=== PATIENT | male | born 1995 | race Caucasian/White ===

== ENCOUNTER 2017-09-25 22:05 | Inpatient (IN) | payer OTHER ==
[2017-09-25] MEDS ORDERED: ACETAMINOPHEN 325 MG TAB PO (22:30)
[2017-09-25] MEDS ORDERED: NACL 0.9% 3 ML SYG IV (22:30)
[2017-09-25] MEDS ORDERED: DOCUSATE SODIUM 100 MG CAP PO (22:30)
[2017-09-25] MEDS ORDERED: ONDANSETRON 4 MG INJ IV (22:30)
[2017-09-25] MEDS ORDERED: BISACODYL (EC) 5 MG TAB PO (22:30)
[2017-09-25] MEDS: SOD CHLORIDE 0.9% 1,000 ML IV (23:23)
[2017-09-25 23:30] LABS: ADD MAN DIFF? NO
[2017-09-25 23:31] LABS: WHITE BLOOD COUNT 10.7 10^3/ul (4.8-10.8)
[2017-09-25 23:31] LABS: BASOPHIL # 0.1 10^3/ul (0.0-0.1); BASOPHILS % 0.5 % (0.0-2.0); EOSINOPHILS % 0.2 % (0.0-7.0); HEMOGLOBIN 14.3 g/dl (14.0-18.0); LYMPHOCYTES # 1.3 10^3/ul (0.8-2.9); LYMPHOCYTES % 12.5 % (18.0-55.0); MEAN CORPUSCULAR HEMOGLOBIN 31.6 pg (29.0-33.0); MEAN CORPUSCULAR VOLUME 92.9 fl (72.0-104.0); MEAN PLATELET VOLUME 10.6 fl (7.4-10.4); MONOCYTE # 1.2 10^3/ul (0.3-0.9); MONOCYTES % 10.9 % (0.0-13.0); NEUTROPHIL # 8.1 10^3/ul (1.6-7.5); NEUTROPHILS % 75.6 % (30.0-74.0); PLATELET COUNT 205 10^3/UL (140-415); RED BLOOD COUNT 4.52 10^6/ul (4.70-6.10); RED CELL DISTRIBUTION WIDTH 12.6 % (11.5-14.5)
[2017-09-25 23:51] LABS: INR 1.13; PROTIME 14.7 Sec (11.9-14.9); PT RATIO 1.1
[2017-09-25 23:52] LABS: PARTIAL THROMBOPLASTIN TIME 36.9 Sec (25.0-35.0)
[2017-09-25 23:53] LABS: ALANINE AMINOTRANSFERASE 22 IU/L (13-69); ALBUMIN/GLOBULIN RATIO 1.33; ALKALINE PHOSPHATASE 88 IU/L (42-121); ANION GAP 12 (8-16); ASPARTATE AMINO TRANSFERASE 15 IU/L (15-46); BLOOD UREA NITROGEN 8 mg/dl (7-20); CALCIUM 9.1 mg/dl (8.4-10.2); CARBON DIOXIDE 28 mmol/L (21-31); CHLORIDE 106 mmol/L (97-110); CREATININE 0.93 mg/dl (0.61-1.24); GLUCOSE 100 mg/dl (70-220); POTASSIUM 4.1 mmol/L (3.5-5.1); SODIUM 142 mmol/L (135-144)
[2017-09-26 05:38] LABS: ADD MAN DIFF? NO
[2017-09-26 05:51] LABS: WHITE BLOOD COUNT 8.9 10^3/ul (4.8-10.8)
[2017-09-26 05:51] LABS: BASOPHIL # 0.1 10^3/ul (0.0-0.1); BASOPHILS % 0.8 % (0.0-2.0); EOSINOPHILS # 0.1 10^3/ul (0.0-0.5); HEMATOCRIT 39.3 % (42.0-52.0); HEMOGLOBIN 13.2 g/dl (14.0-18.0); LYMPHOCYTES # 1.6 10^3/ul (0.8-2.9); LYMPHOCYTES % 17.6 % (18.0-55.0); MEAN CORPUSCULAR HEMOGLOBIN 31.4 pg (29.0-33.0); MEAN CORPUSCULAR HGB CONC 33.6 g/dl (32.0-37.0); MEAN CORPUSCULAR VOLUME 93.3 fl (72.0-104.0); MEAN PLATELET VOLUME 11.2 fl (7.4-10.4); MONOCYTE # 1.1 10^3/ul (0.3-0.9); MONOCYTES % 12.3 % (0.0-13.0); NEUTROPHIL # 6.1 10^3/ul (1.6-7.5); PLATELET COUNT 193 10^3/UL (140-415); RED BLOOD COUNT 4.21 10^6/ul (4.70-6.10); RED CELL DISTRIBUTION WIDTH 12.8 % (11.5-14.5)
[2017-09-26 06:10] LABS: HEMOGLOBIN A1C 5.5 % (0-5.9)
[2017-09-26 06:12] LABS: ALANINE AMINOTRANSFERASE 20 IU/L (13-69); ALBUMIN 3.6 g/dl (3.3-4.9); ALBUMIN/GLOBULIN RATIO 1.28; ALKALINE PHOSPHATASE 76 IU/L (42-121); ANION GAP 11 (8-16); ASPARTATE AMINO TRANSFERASE 14 IU/L (15-46); BILIRUBIN,INDIRECT 0.9 mg/dl (0-1.1); BILIRUBIN,TOTAL 0.9 mg/dl (0.2-1.3); BLOOD UREA NITROGEN 9 mg/dl (7-20); CALCIUM 8.9 mg/dl (8.4-10.2); CARBON DIOXIDE 27 mmol/L (21-31); CHLORIDE 107 mmol/L (97-110); CREATININE 1.11 mg/dl (0.61-1.24); GLUCOSE 88 mg/dl (70-220); SODIUM 141 mmol/L (135-144); TOTAL PROTEIN 6.4 g/dl (6.1-8.1)
[2017-09-26] MEDS ORDERED: LIDOCAINE 1%/EPI 30 ML INJ (07:00)
[2017-09-26] MEDS ORDERED: BUPIVACAINE 0.25% (MPF) 30 ML INJ (07:00)
[2017-09-26] MEDS ORDERED: PROPOFOL 20 ML (07:32)
[2017-09-26] MEDS ORDERED: CEFAZOLIN 1 GM INJ (07:32)
[2017-09-26] MEDS ORDERED: ROCURONIUM 50 MG INJ ×2 (07:32→07:33)
[2017-09-26] MEDS ORDERED: ROPIVACAINE 0.5 % 30 ML VIAL (07:33)
[2017-09-26] MEDS ORDERED: MIDAZOLAM 1 MG/ML 2 ML INJ (07:33)
[2017-09-26] MEDS ORDERED: PHENYLephrine (100 MCG/ML) 5ML SYG (08:19)
[2017-09-26] MEDS ORDERED: DEXAMETHASONE 4 MG/ML 1 ML INJ (08:47)
[2017-09-26] MEDS ORDERED: KETOROLAC 30 MG INJ (08:47)
[2017-09-26] MEDS ORDERED: METOCLOPRAMIDE 10 MG INJ (08:47)
[2017-09-26] MEDS ORDERED: ONDANSETRON 4 MG INJ (08:47)
[2017-09-26] MEDS ORDERED: SUGAMMADEX SODIUM 200 MG/2 ML VIAL IV (08:47)
[2017-09-26] MEDS ORDERED: HYDROCODONE/APAP (5/325) TAB PO ×2 (09:30)
[2017-09-26] MEDS: morphine 2 MG INJ IV (13:01)
[2017-09-26] MEDS ORDERED: morphine LIQ (10 MG/5 ML) CUP PO (13:30)
[2017-09-26] MEDS ORDERED: PIPER-TAZO 3.375 GM IV (PMX) 100 ML IVPB (23:15)
== END 2017-09-26 16:30 | disposition home or self-care (01) | DRG 343 ==
LOC: PP2 22:05
PROC: 0DTJ4ZZ Resection of Appendix, Percutaneous Endoscopic Approach (ICD-10-PCS; principal; 2017-09-26 07:30)
DX: K35.80 Unspecified acute appendicitis (principal)
CPT/HCPCS: 80053; 83036; 83735; 84443; 85025; 85610; 85730; 88304